=== PATIENT | male | born 1950 | race African-American/Black ===

== ENCOUNTER 2018-05-20 17:52 | Inpatient (IN) | payer OTHER ==
[~2018-05-20] VITALS: Ht 172.7 cm; Wt 79.8 kg
[2018-05-20 18:06] VITALS: BP 141/79
--- NOTE | 2018-05-20 18:20 | NUR ---
PT WHEELCHAIR ASSISTED TO LOBBY WITH EMS.
--- NOTE | 2018-05-20 18:49 | NUR ---
PT FROM [facility] FOR ABNORMAL BUN. PT DENIES N/V/D; MULTIPLE WOUNDS ON BILAT FEET, PINK/WARM/DRY; AAOX4, PERRL, UNABLE TO AMBULATE WITHOUT ASSISTIVE DEVICE, LUNGS CLEAR BL, BREATHING UNLABORED; HR EVEN AND REGULAR, BL PERIPHERAL PULSES PRESENT; BS ACTIVE X4, NO TENDERNESS TO PALPATION, NO HEPATOSPLENOMEGALLY PALPATED, RESONANT TO PERCUSSION; PT DENIES ANY FEVER, CP, SOB, OR COUGH AT THIS TIME; PT STATES 0/10 PAIN AT THIS TIME; VSS; PATIENT POSITIONED FOR COMFORT; HOB ELEVATED; BEDRAILS UP X2; BED DOWN.
--- NOTE | 2018-05-20 19:08 | NUR ---
REPORT TO MELECIO ABEBE
--- NOTE | 2018-05-20 19:11 | NUR ---
REPORT RECIEVED FROM SANTI ABEBE
--- NOTE | 2018-05-20 19:26 | NUR ---
Dr. Ortiz evaluating patient at bedside.
[2018-05-20 19:58] LABS: BASOPHILS # (AUTO) 0.1 K/uL (0.00-0.22); BASOPHILS % (AUTO) 0.9 % (0.0-2.0); EOSINOPHILS % (AUTO) 0.7 % (0.0-4.0); HEMATOCRIT 23.7 % (36-52); HEMOGLOBIN 7.9 g/dL (12.0-18.0); LYMPHOCYTES # (AUTO) 0.6 K/uL (2.0-11.5); LYMPHOCYTES % (AUTO) 10.6 % (20.5-51.1); MEAN CORPUSCULAR HEMOGLOBIN 30 pg (27-31); MEAN CORPUSCULAR HGB CONC 33 g/dL (33-37); MEAN CORPUSCULAR VOLUME 90.3 fL (80-94); MONOCYTES # (AUTO) 0.5 K/uL (0.8-1.0); MONOCYTES % (AUTO) 8.9 % (1.7-9.3); NEUTROPHILS # (AUTO) 4.7 K/uL (1.8-7.7); NEUTROPHILS % (AUTO) 78.9 % (42.2-75.2); PLATELET COUNT (AUTO) 104 K/uL (140-450); RED BLOOD CELL COUNT(AUTO) 2.63 MIL/uL (4.20-6.10); RED CELL DISTRIBUTION WIDTH 21.2 % (11.6-13.7)
[2018-05-20 20:20] LABS: ANION GAP 11.9 (8-16); CARBON DIOXIDE 26.9 mmol/L (21-32); CREATININE 2.8 mg/dL (0.7-1.3); POTASSIUM 3.8 mmol/L (3.5-5.1); TOTAL BILIRUBIN 0.6 mg/dL (0.0-1.0)
[2018-05-20] MEDS ORDERED: NACL 0.9% 1,000 ML IV ONE (20:40)
[2018-05-20] MEDS ORDERED: HYDROcodone/APAP 7.5/325 MG 1 TAB PO PRN (20:55)
[2018-05-20] MEDS ORDERED: MORPHINE SULFATE 2 MG/ML SYR IVP PRN (20:55)
[2018-05-20] MEDS ORDERED: ONDANSETRON 4 MG/2 ML VIAL IM/IVP PRN (20:55)
[2018-05-20] MEDS ORDERED: DOCUSATE SODIUM 100 MG GELCAP PO PRN (20:55)
[2018-05-20] MEDS ORDERED: ACETAMINOPHEN 325 MG TAB PO PRN (20:55)
[2018-05-20 20:58] LABS: PROTHROMBIN TIME 11.8 secs (10.8-13.4)
[2018-05-20] MEDS: NACL 0.9% 1,000 ML IV SCH (21:00)
[2018-05-20 21:34] LABS: CHOL/HDL RATIO 2.6 (1-4.5); MAGNESIUM 2.7 mg/dL (1.8-2.4); PHOSPHORUS 4.5 mg/dL (2.5-4.9); THYROID STIMULATING HORMONE 3.17 uIU/mL (0.34-3.74)
--- NOTE | 2018-05-20 22:26 | NUR ---
Admitted from ER TO TELEMETRY UNIT , with chief complaint of HIGH BUN IN THE URINE TEST , 67 y/o ,Male, Cooperative, AWAKE, A/OX3. RESIDENT OF SN[facility]. RESPIRATION EVEN AND UNLABORED. IV SALINE LOCK AT THE RIGHT WRIST G20, PATENT AND INTACT. LUNGS CLEAR ON BILATERAL AUSCULTATION, 02 SAT - 100% AT 2 LITERS VIA N/C. ABDOMEN SOFT, NON TENDER WITH POSITIVE BOWEL SOUNDS ON ALL QUADRANTS. WITH EDEMA +1 BILATERAL LOWER EXTREMITIES. HEAD TO TOE ASSESSMENT DONE WITH MIS VILLALPANDO NOTED PRESSURE ULCERS ON SACRAL AREA, RIGHT HEEL, LEFT FOOT ON THE ANTERIOR AND LATERAL SIDE AND LEFT HEEL, ALL COVERED WITH DRESSING DRY AND INTACT. WITH AMPUTATED 2ND TOE AT THE RIGHT FOOT AND 3 SMALL TOES AT LEFT FOOT. PAIN AT THE LEFT FOOT 2/10, WILL MEDICATE ORDERED. PLACED BILATERAL FEET ON TWO PILLOWS FOR COMFORT. PLAN OF CARE FOR THE SHIFT DISCUSSED. VERBALIZED UNDERSTANDING. oriented to call light, bed, phone,television, bathroom, smoking policy,visiting hours, procedures, ID bracelet on. Belongings list checked.
[2018-05-20] MEDS ORDERED: OXYC5TAB4 PO (22:27)
[2018-05-20] MEDS ORDERED: CARV3.12 PO (22:27)
[2018-05-20] MEDS ORDERED: FAMO-90 PO (22:27)
[2018-05-20] MEDS ORDERED: SIMV10TA1 PO (22:27)
[2018-05-20] MEDS ORDERED: PROSTAT AWC PO (22:27)
[2018-05-20] MEDS ORDERED: FERR325E14 PO (22:27)
[2018-05-20] MEDS ORDERED: ZYL300 PO (22:27)
[2018-05-20] MEDS ORDERED: AMIO200T5 PO (22:27)
[2018-05-20] MEDS ORDERED: NA P133E RC (22:27)
[2018-05-20] MEDS ORDERED: FURO-570 PO (22:27)
[2018-05-20] MEDS ORDERED: GLIP5TER PO (22:27)
[2018-05-20] MEDS ORDERED: CYCL10TA13 PO (22:27)
[2018-05-20 22:30] VITALS: BP 116/81
--- NOTE | 2018-05-20 22:42 | NUR ---
REPORT GIVEN AND CARE TRANSFERED TO [facility] ROOM 114B. TRANSPORTED VIA [facility] WITH VSS.
[2018-05-20] MEDS ORDERED: MOM PO (22:46)
[2018-05-20] MEDS ORDERED: MVI WITH MINERALS PO (22:46)
[2018-05-20] MEDS ORDERED: HYDR-5092 PO (22:46)
[2018-05-20] MEDS ORDERED: ASCO500T45 PO (22:46)
[2018-05-20] MEDS ORDERED: TEMA15CA24 PO (22:46)
[2018-05-20] MEDS ORDERED: ZAR2.5 PO (22:46)
[2018-05-20] MEDS ORDERED: VITA1TAB44 PO (22:46)
[2018-05-20] MEDS ORDERED: [UNRECOGNIZED DRUG - CODE] (22:46)
[2018-05-20] MEDS ORDERED: DULO20EC PO (22:46)
[2018-05-20] MEDS ORDERED: MIRABULK PO (22:46)
[2018-05-20] MEDS ORDERED: VITD1000 PO (22:46)
[2018-05-20] MEDS ORDERED: LACT10SO1 PO (22:46)
[2018-05-20] MEDS ORDERED: POLYETHYLENE GLYCOL 17 GM/PKT PO PRN (23:00)
[2018-05-20] MEDS ORDERED: DULOXETINE HCL 10 MG PO PRN (23:00)
[2018-05-20] MEDS ORDERED: HYDROcodone/APAP 10/325 MG 1 TAB TAB PO PRN (23:00)
[2018-05-20] MEDS ORDERED: SODIUM PHOSPHATE 118 ML ENEM RC PRN (23:00)
[2018-05-21] VITALS: BP 125/68
[2018-05-21] MEDS ORDERED: DEXTROSE 50% 50 ML SYR IVP PRN (00:15)
[2018-05-21] MEDS: TEMAZEPAM 15 MG CAP PO PRN ×2 (00:21→23:16)
--- NOTE | 2018-05-21 00:21 | NUR ---
UNABLE TO SLEEP, MEDICATED WITH RESTORIL 30 MG. PO. ORDERED.
--- NOTE | 2018-05-21 01:00 | NUR ---
CLEANSE ALL WOUNDS WITH NS, PAT DRY WITH GAUZE, TOOK SPECIMEN FOR WOULD CULTURE, COVERED WITH GAUZE DRESSING.
[2018-05-21] MEDS: NACL 0.9% 1,000 ML IV SCH (01:04)
--- NOTE | 2018-05-21 01:30 | NUR ---
SLEEPING COMFORTABLY IN BED.
[2018-05-21] MEDS ORDERED: FUROSEMIDE 40 MG/4 ML VIAL IVP SCH (03:00)
[2018-05-21] MEDS ORDERED: Z-GUARD PASTE TP PRN (03:50)
[2018-05-21 04:35] VITALS: BP 115/68
--- NOTE | 2018-05-21 06:20 | NUR ---
REFUSED SEQUENTIALS TO BE PUT ON, WANTS IT LATER.
[2018-05-21] MEDS: BLOOD GLUCOSE MONITORING 1 DEV DEV FS SCH ×4 (06:26→20:31)
--- NOTE | 2018-05-21 06:59 | NUR ---
SLEEPING COMFORTABLY IN BED. CONDITION REMAIN STABLE. ALL NEEDS ATTENDED. WILL ENDORSE TO AM NURSE FOR CONTINUITY OF CARE.
[2018-05-21] MEDS ORDERED: oxyCODONE 5 MG TAB PO SCH (07:00)
--- NOTE | 2018-05-21 07:15 | NUR ---
ENDORSED TO ULISSES GUTIERREZ FOR CONTINUITY OF CARE.
--- NOTE | 2018-05-21 07:16 | NUR ---
RECEIVED REPORT FROM HADOOP ADMINISTRATOR NURSE. PATIENT LYING DOWN IN BED COMFORTABLY. NO DISTRESS NOTED. DENIES ANY PAIN AT THIS TIME. AAOX3, CALM, COOPERATIVE, SKIN COLOR APPROPRIATE TO ETHNICITY, WARM TO TOUCH. HAS B/L FOOT DM WOUNDS, AND B/L HEELS PRESSURE ULCER. DRESSINGS ARE DRY AND INTACT. HAS SACRAL ULCER NOTED, DRESSING IS DRY AND INTACT. IV SITE INTACT, PATENT, AND INFUSING IVF PER MD ORDERS. ABDOMEN SOFT, NON-DISTENDED. LUNGS CTA ON ALL LOBES. REVIEWED PLAN OF CARE WITH PATIENT. PATIENT VERBALIZED UNDERSTANDING. SAFETY MEASURES IN PLACE, CALL LIGHT WITHIN REACH. WILL CONTINUE TO MONITOR.
[2018-05-21 07:24] LABS: BASOPHILS % (AUTO) 0.9 % (0.0-2.0); EOSINOPHILS # (AUTO) 0.1 K/uL (0-0.4); EOSINOPHILS % (AUTO) 1.1 % (0.0-4.0); LYMPHOCYTES # (AUTO) 0.6 K/uL (2.0-11.5); LYMPHOCYTES % (AUTO) 11.4 % (20.5-51.1); MEAN CORPUSCULAR HEMOGLOBIN 30 pg (27-31); MEAN CORPUSCULAR HGB CONC 33 g/dL (33-37); MEAN CORPUSCULAR VOLUME 91.4 fL (80-94); MONOCYTES # (AUTO) 0.4 K/uL (0.8-1.0); MONOCYTES % (AUTO) 7.9 % (1.7-9.3); NEUTROPHILS # (AUTO) 4.2 K/uL (1.8-7.7); NEUTROPHILS % (AUTO) 78.7 % (42.2-75.2); PLATELET COUNT (AUTO) 90 K/uL (140-450); RED CELL DISTRIBUTION WIDTH 20.9 % (11.6-13.7); WHITE BLOOD COUNT (AUTO) 5.4 K/uL (4.8-10.8)
[2018-05-21 07:45] LABS: ANION GAP 12.5 (8-16); CREATININE 2.6 mg/dL (0.7-1.3); POTASSIUM 3.5 mmol/L (3.5-5.1)
[2018-05-21 07:58] LABS: HEMOGLOBIN 6.9 g/dL (12.0-18.0)
[2018-05-21 08:00] VITALS: BP 114/67
[2018-05-21 08:39] LABS: MAGNESIUM 2.5 mg/dL (1.8-2.4); PHOSPHORUS 4.2 mg/dL (2.5-4.9)
--- NOTE | 2018-05-21 08:41 | NUR ---
PATIENT HAS BEEN SCREENED AND CATEGORIZED HIGH NUTRITION RISK. PATIENT WILL BE SEEN WITHIN 1-2 DAYS OF ADMISSION. 05/21/18-05/22/[address]
[2018-05-21] MEDS ORDERED: FUROSEMIDE 40 MG TAB PO SCH (09:00)
[2018-05-21] MEDS ORDERED: DULoxetine 30 MG CAPDR PO SCH (09:00)
[2018-05-21] MEDS: AMIODARONE 200 MG TAB PO SCH (09:36)
[2018-05-21] MEDS: VIT-B COMP/VIT-C/FOLIC ACID 1 TAB PO SCH (09:37)
[2018-05-21] MEDS: ASCORBIC ACID 500 MG TAB PO SCH ×2 (09:37→20:44)
[2018-05-21] MEDS: FAMOTIDINE 20 MG TAB PO SCH (09:37)
[2018-05-21] MEDS: CHOLECALCIFEROL 1,000 IU TAB PO SCH (09:37)
[2018-05-21] MEDS: FERROUS SULFATE 325 MG TABEC PO SCH ×3 (09:37→17:08)
[2018-05-21] MEDS: METOLAZONE 2.5 MG TAB PO SCH (09:38)
[2018-05-21] MEDS: ALLOPURINOL 300 MG TAB PO SCH (09:38)
[2018-05-21] MEDS: CARVEDILOL 3.125 MG TAB PO SCH ×2 (09:39→20:44)
[2018-05-21] MEDS: CYCLOBENZAPRINE 10 MG TAB PO SCH ×2 (09:39→20:42)
--- NOTE | 2018-05-21 09:40 | NUR ---
PATIENT URINATED IN URINAL. ABLE TO URINATE. PER DR. NGO ORDERS, WILL NOT INSERT RAMIREZ CATH SINCE PATIENT ABLE TO URINATE.
--- NOTE | 2018-05-21 09:43 | NUR ---
PATIENT LYING DOWN IN BED WATCHING TV. NO DISTRESS NOTED. DENIES ANY PAIN. SCHEDULED MEDICATIONS DUE GIVEN. SAFETY MEASURES IN PLACE, CALL LIGHT WITHIN REACH. WILL CONTINUE TO MONITOR.
--- NOTE | 2018-05-21 09:45 | NUR ---
STARTED 24 HOUR URINE PROTEIN COLLECTION PER DR. NGO ORDERS. WILL CONTINUE TO MONITOR.
[2018-05-21 12:00] VITALS: BP 98/56
[2018-05-21] MEDS: oxyCODONE 5 MG TAB PO SCH ×2 (13:06→20:41)
--- NOTE | 2018-05-21 13:08 | NUR ---
PATIENT SITTING DOWN IN BED WITH LUNCH TRAY IN FRONT. NO DISTRESS NOTED. DENIES ANY PAIN AT THIS TIME. SCHEDULED MEDICATIONS DUE GIVEN. SAFETY MEASURES IN PLACE, CALL LIGHT WITHIN REACH. WILL CONTINUE TO MONITOR.
--- NOTE | 2018-05-21 13:40 | NUR ---
RECEIVED A CALL FROM LAB REGARDING 1 UNIT PRBC. PER CHUCHO AT LAB, BLOOD TYPE AND SCREEN PERFORMED TODAY DID NOT MATCH TYPE AND SCREEN DURING EARLIER PM SHIFT. PHLEBOTIMIST TO REDRAW BLOOD AGAIN TO REDO TYPE AND SCREEN. WILL CONTINUE TO MONITOR.
--- NOTE | 2018-05-21 15:33 | NUR ---
REASON FOR EVALUATION: BLE MULTIPLE WOUNDS SKIN ASSESSMENT DONE WITH PRIMARY RN WITH THIS 67 Y/O MALE PT ADMITTED FROM [facility] TO [facility] WITH INITIAL DX OF ABNORMAL LABS. PAST MEDICAL HX INCLUDES HTN, CABG, CHF, DEPRESSION AND LEFT FOOT PARTIAL AMPUTATION WITH SKIN GRAFTS 3 MONTHHS AGO. PT. HAS WOUND DOCTOR FOLLOW HIS WOUND CARE AT SNF POST SURGERY AND PRESSURE INJURIES TO SCARALCOCCYX. ALL ABOVE INFORMATION OBTAINED FROM ADMISSION H&P. SNF TX NURSE, IVORY WHO EXPLAINS ALL WOUNDS ARE TREATED WITH HONEY TREATMENT EXCEPT THE LEFT HEEL IS TREATED WITH BETADINE SOLUTION. LABS ARE WBC 5.4, H/H 6.9/21.0, GLUCOSE 105 AND ALBUMIN 3.0. PT IS AWAKE. SKIN IS WARM AND DRY, BLE NO HAIR GROWTH, RIGHT DORSAL PEDAL PULSES PRESENT AND NORMAL. PLAN OF CARE DISCUSSED WITH PRIMARY RN AND PT. PT. VERBALIZES UNDERSTANDING. INTEGUMENTARY: - BILATERAL SHINS SKIN THIN AND MOIST -INCONTINENT ASSOCIATE DERMATITIS (IAD) TO: R/L INNER BUTTOCKS EXTENDED TO PERINEUM -OLD HEALED SCARS TO LEFT BUTTOCK -OLD HEALED SURGICAL SITES S/P SKIN GRAFT (DONOR SITES) TO RIGHT AND LEFT UPPER THIGHS, WOUND BED ARE PINK, DRY NO S/S OF INFECTION - PRESSURE INJURY STAGE 2 TO SACRALCOCCYX 1X1X0.1CM, WOUND BED DRY AND PALE PINK IN COLOR, NO S/S OF INFECTIONS -PRESSURE INJURY STAGE 2 TO RIGHT HEEL 4X3X0.1 CM PALE PINK IN WOUND BED, MOIST AND NO ODOR -PRESSURE INJURY UN-STAGEABLE TO LEFT HEEL 5X7CM BLACK ESCHAR -LEFT DORSAL FOOT SURGICAL WOUND (SKIN GRAFT RECIPIENT SITE) 10X5 X0.1 CM, WOUND BED IS RED AND CLEAN, SMALL AMOUNT OF SANGUINEOUS DRAINAGE, NO ODOR, AIDE-WOUND SKIN INTACT. -LEFT LATERAL FOOT SURGICAL WOUND 4X10X 0.1 CM, WOUND BED IS RED AND CLEAN, NO DRAINAGE, NO ODOR, AIDE-WOUND SKIN INTACT. - PRESSURE INJURY UN-STAGEABLE TO LEFT GREAT TOE 1X1 CM BLACK ESCHAR. RECOMMENDATIONS: -APPLY HYDRAGUARD TO BILATERAL ORELLANA -APPLY Z-GUARD TO: R/L BUTTOCKS EXTENDED TO PERINEUM BID AND PRN IF SOILING -APPLY FORM DRESSING TO SACROCOCCY AND LEFT BUTTOCK QDAY AND PRN IF SOILING -CLEANSE LEFT DORSAL FOOT, LEFT LATERAL FOOT AND RIGHT HEEL WITH NS, PART DRY, APPLY THERAHONEY DRESSING SHEET AND COVER WITH DRY DRESSING CHANGE Q72 HOURS AND PRN IF SOILING. -APPLY VERSATEL DRESSING TO RIGHT AND LEFT UPPER THIGHS SKIN GRAFTS Q5 DAYS AND PRN IF SOILING, MONITOR PLACEMENT OF DRESSING Q SHIFT -APPLY SOAKED BETADINE SOLUTION TO LEFT HEEL, COVER WITH DRY DRESSING, WRAP WITH KERLIX ROLLS QD -APPLY HEEL RAISER TO BILATERAL HEELS AT ALL TIMES -OFFLOAD BILATERAL HEELS BY PLACING PILLOWS UNDER CALVES UNLESS OTHERWISE CONTRAINDICATED -PRESSURE REDISTRIBUTIONS SURFACE THERAPY -TURN AND REPOSITION Q2H, OFFLOAD SACRALCOCCYX BY TURNING RIGHT AND LEFT -CONTINUE TO FOLLOW RD RECOMMENDATIONS -CONTINUE TO FOLLOW WOUND DOCTOR UPON DISCHARGE TO [facility] ALL ABOVE RECOMMENDATIONS DISCUSSED WITH PRIMARY RN WILL FOLLOW UP PT Q7-10 DAYS. PLEASE CONTACT WOUND CARE NURSE FOR ANY QUESTION AND CHANGE OF WOUND CONDITION.
[2018-05-21 16:00] VITALS: BP 109/70
[2018-05-21] MEDS ORDERED: THERAHONEY WOUND DRESSING TP PRN (16:05)
--- NOTE | 2018-05-21 16:20 | NUR ---
1 UNIT PRBC STARTED AT THIS TIME. WILL CONTINUE TO MONITOR PER PROTOCOL.
[2018-05-21] MEDS: LACTULOSE 20 GM/30 ML UDC PO SCH ×2 (17:07→20:41)
[2018-05-21] MEDS: INSULIN LISPRO SLIDING SCALE 100 UNITS/ML VIAL SUBQ PRN ×2 (17:07→20:43)
[2018-05-21] MEDS: glipiZIDE 5 MG TAB PO SCH (17:08)
--- NOTE | 2018-05-21 17:12 | NUR ---
PATIENT SITTING IN BED WATCHING TV. NO DISTRESS NOTED. DENIES ANY PAIN. SCHEDULED MEDICATIONS DUE GIVEN. WILL CONTINUE TO MONITOR.
--- NOTE | 2018-05-21 18:40 | NUR ---
1 UNIT PRBC TRANSFUSION COMPLETED. NO REACTIONS NOTED. WILL CONTINUE TO MONITOR.
--- NOTE | 2018-05-21 19:30 | NUR ---
RECEIVED REPORT FROM DAY SHIFT NURSE, MATT, AT PT BEDSIDE. PT IN STABLE CONDITION. PT IS AAOX4. PT IS ON NC 2L. RESPIRATIONS ARE EVEN AND UNLABORED. IV ACCESS IN R HAND 20G, SALINE LOCKED. IV IS PATIENT AND INTACT. PT HAS A SACRAL WOUND COVERED WITH DRESS. DM ULCER TO L FOOT AND R HEEL COVERED WITH DRESSING. WOUND TO L HEEL COVERED WITH DRESSING. ALL DRESSING ARE DRY AND INTACT. PT HAS L LAST THREE TOES AND MIDDLE RIGHT TOE AMPUTATION. HEEL PROTECTORS PLACED BI LATERALLY. PT HAS NO C/O PAIN AT THIS TIME. BED IS LOCKED, LOW POSITION WITH SIDE RAILS UP X2. BOARD UPDATED. CALL LIGHT IS WITHIN REACH. WILL CONTINUE TO MONITOR.
--- NOTE | 2018-05-21 19:30 | NUR ---
GAVE REPORT TO DECISION SCIENCE ANALYST NURSE FOR CONTINUITY OF CARE. PATIENT IN STABLE CONDITION.
[2018-05-21] MEDS: SIMVASTATIN 10 MG TAB PO SCH (20:41)
--- NOTE | 2018-05-21 20:45 | NUR ---
ADMINISTERED SCHEDULED MEDICATIONS. PT TOOLERATED WELL. ALL OTHER NEEDS ARE MET AT THIS TIME. WILL CONTINUE TO MONITOR.
[2018-05-21 21:21] LABS: BASOPHILS % (AUTO) 0.4 % (0.0-2.0); EOSINOPHILS % (AUTO) 0.4 % (0.0-4.0); HEMATOCRIT 23.2 % (36-52); HEMOGLOBIN 7.7 g/dL (12.0-18.0); LYMPHOCYTES # (AUTO) 0.5 K/uL (2.0-11.5); LYMPHOCYTES % (AUTO) 7.9 % (20.5-51.1); MEAN CORPUSCULAR HEMOGLOBIN 30 pg (27-31); MEAN CORPUSCULAR HGB CONC 33 g/dL (33-37); MEAN CORPUSCULAR VOLUME 89.2 fL (80-94); MONOCYTES # (AUTO) 0.5 K/uL (0.8-1.0); MONOCYTES % (AUTO) 7.4 % (1.7-9.3); NEUTROPHILS # (AUTO) 5.2 K/uL (1.8-7.7); NEUTROPHILS % (AUTO) 83.9 % (42.2-75.2); PLATELET COUNT (AUTO) 89 K/uL (140-450); RED BLOOD CELL COUNT(AUTO) 2.61 MIL/uL (4.20-6.10); WHITE BLOOD COUNT (AUTO) 6.2 K/uL (4.8-10.8)
--- NOTE | 2018-05-21 23:16 | NUR ---
PT C/O PAIN. NORCO GIVEN PT C/O DIFFICULTY FALLING ASLEEP RESTORIL GIVEN. PT TOLERATED WELL. WILL CONTINUE TO MONITOR PT.
[2018-05-22] VITALS: BP 108/68
--- NOTE | 2018-05-22 00:16 | NUR ---
PT NO LONGER C/O PAIN. PT IS RESTING COMFORTABLY IN BED. NO SIGNS OR SYMPTOMS OF DISTRESS. WILL CONTINUE TO MONITOR.
[2018-05-22] MEDS: THERAHONEY WOUND DRESSING TP SCH ×2 (01:15→13:00)
[2018-05-22] MEDS: HYDRAGUARD CREAM TP SCH ×2 (01:15→13:00)
[2018-05-22] MEDS: Z-GUARD PASTE TP SCH ×2 (01:15→13:00)
--- NOTE | 2018-05-22 01:16 | NUR ---
WOUND CARE PERFORMED. THERAHONEY DRESSINGS APPLIED TO LEFT FOOT AND RIGHT HEEL. LEFT HEEL CLEANED WITH BETADINE AND NEW DRESISNG APPLIED. HYDRAGAURD APPLIED TO SHINS BILATERALLY. Z-UBALDO AND OPTIFORM APPLIED TO SACRAL AREA. PT TOLERATED WELL. NO SIGNS OR SYMPTOMS OF DISTRESS. WILL CONTINUE TO MONITOR.
--- NOTE | 2018-05-22 03:14 | NUR ---
PT RESTING COMFORTABLY IN BED. BLANKET AND ICE CHIPS GIVEN. ALL OTHER NEEDS ARE MET AT THIS TIME. WILL CONTINUE TO MONITOR PT.
[2018-05-22] MEDS: BLOOD GLUCOSE MONITORING 1 DEV DEV FS SCH ×4 (05:46→21:41)
[2018-05-22] MEDS: oxyCODONE 5 MG TAB PO SCH ×3 (05:47→21:59)
--- NOTE | 2018-05-22 05:47 | NUR ---
SCHEDULED MEDICATION ADMINISTERED. PT TOLERATED WELL. PT BS 51, D 50 GIVEN. WILL REASSESS BS.
--- NOTE | 2018-05-22 06:14 | NUR ---
BS RECHECKED, 161. WILL CONTINUE TO MONITOR PT.
[2018-05-22] MEDS: glipiZIDE 5 MG TAB PO SCH ×2 (06:42→16:30)
--- NOTE | 2018-05-22 06:43 | NUR ---
ADMINISTERED SCHEDULED MEDICATION. PT TOLERATED WELL. PT IS RESTING COMFORTABLY IN BED. ALL NEEDS ARE MET AT THIS TIME. WILL CONTINUE TO MONITOR.
[2018-05-22 07:10] LABS: BASOPHILS % (AUTO) 0.6 % (0.0-2.0); EOSINOPHILS % (AUTO) 0.9 % (0.0-4.0); LYMPHOCYTES # (AUTO) 0.7 K/uL (2.0-11.5); LYMPHOCYTES % (AUTO) 12.9 % (20.5-51.1); MEAN CORPUSCULAR HEMOGLOBIN 29 pg (27-31); MEAN CORPUSCULAR HGB CONC 33 g/dL (33-37); MEAN CORPUSCULAR VOLUME 89.9 fL (80-94); MONOCYTES # (AUTO) 0.5 K/uL (0.8-1.0); MONOCYTES % (AUTO) 9.9 % (1.7-9.3); NEUTROPHILS # (AUTO) 3.8 K/uL (1.8-7.7); NEUTROPHILS % (AUTO) 75.7 % (42.2-75.2); PLATELET COUNT (AUTO) 80 K/uL (140-450); RED BLOOD CELL COUNT(AUTO) 2.34 MIL/uL (4.20-6.10); RED CELL DISTRIBUTION WIDTH 19.8 % (11.6-13.7); WHITE BLOOD COUNT (AUTO) 5.1 K/uL (4.8-10.8)
--- NOTE | 2018-05-22 07:25 | NUR ---
PT REPORT RECEIVED FROM SUPERVISOR PROCESS TESTING NURSE AT BEDSIDE. PT IS AWAKE AND ALERT, NO S/S OF DISTRESS. PT HAS A R HAND 20 GAUGE IV SITE, SALINE LOCK. SKIN INTACT EXCEPT FOR THE 2 SMALL WOUND ON SACRUM, REINFORCED WITH OCTIFORM. PT CURRENTLY 2 L O2 NC. IN PROCESS OF COLLECTING 24 HOUR URINE. BED IS IN LOW POSITION, CALL LIGHT WITHIN REACH. WILL CONTINUE TO MONITOR.
--- NOTE | 2018-05-22 07:31 | NUR ---
ENDORSED PT TO DAY SHIFT NURSE FOR CONTINUITY OF CARE. PT IN STABLE CONDITION.
[2018-05-22 07:47] LABS: ANION GAP 10.5 (8-16); CARBON DIOXIDE 26.8 mmol/L (21-32); CREATININE 2.6 mg/dL (0.7-1.3); POTASSIUM 3.3 mmol/L (3.5-5.1)
[2018-05-22 07:49] LABS: HEMOGLOBIN 6.9 g/dL (12.0-18.0)
[2018-05-22 07:54] LABS: MAGNESIUM 2.4 mg/dL (1.8-2.4); PHOSPHORUS 4.6 mg/dL (2.5-4.9)
[2018-05-22 08:00] VITALS: BP 109/71
[2018-05-22 08:21] LABS: T4 (THYROXINE) 9.5 ug/dL (4.5-12.0)
[2018-05-22] MEDS ORDERED: POTASSIUM CHLORIDE 10 MEQ TABER PO SCH (08:28)
[2018-05-22 09:12] LABS: IMMUNOGLOBULIN A 688 mg/dL (61-437); IMMUNOGLOBULIN G 3208 mg/dL (700-1600); IMMUNOGLOBULIN M 136 mg/dL (20-172)
[2018-05-22] MEDS: CARVEDILOL 3.125 MG TAB PO SCH ×2 (09:54→21:59)
[2018-05-22] MEDS: CYCLOBENZAPRINE 10 MG TAB PO SCH ×2 (09:54→21:59)
[2018-05-22] MEDS: FAMOTIDINE 20 MG TAB PO SCH (09:54)
[2018-05-22] MEDS: FUROSEMIDE 40 MG TAB PO SCH ×2 (09:54→18:21)
[2018-05-22] MEDS: VIT-B COMP/VIT-C/FOLIC ACID 1 TAB PO SCH (09:55)
[2018-05-22] MEDS: FERROUS SULFATE 325 MG TABEC PO SCH ×3 (09:55→18:21)
[2018-05-22] MEDS: METOLAZONE 2.5 MG TAB PO SCH (09:55)
[2018-05-22] MEDS: AMIODARONE 200 MG TAB PO SCH (09:55)
[2018-05-22] MEDS: CHOLECALCIFEROL 1,000 IU TAB PO SCH (09:55)
[2018-05-22] MEDS: ASCORBIC ACID 500 MG TAB PO SCH ×2 (09:55→21:59)
[2018-05-22] MEDS: ALLOPURINOL 300 MG TAB PO SCH (09:56)
[2018-05-22] MEDS: LACTULOSE 20 GM/30 ML UDC PO SCH ×4 (10:03→21:00)
--- NOTE | 2018-05-22 10:10 | NUR ---
24 HOUR URINE COLLECTION AND URINE PROFILE SAMPLE TAKEN TO LAB.
[2018-05-22 11:26] LABS: APPEARANCE,URINE SLIGHTLY CLOUDY (CLEAR); BILIRUBIN,URINE NEGATIVE (NEGATIVE); BLOOD, URINE NEGATIVE (NEGATIVE); COLOR,URINE YELLOW (YELLOW); LEUKOCYTE ESTERASE ,URINE 1+ (NEGATIVE); NITRITE, URINE NEGATIVE (NEGATIVE); UGLUCOSE NEGATIVE (NEGATIVE)
[2018-05-22 11:27] LABS: RBC,URINE 0-5 (RARE) /HPF (0-5); WBC,URINE 60-80 /HPF (0-5)
--- NOTE | 2018-05-22 11:55 | NUR ---
BLOOD TRANSFUSION STARTED. NO S/S OF ACUTE DISTRESS OR REACTIONS NOTED AT THIS TIME. CONTINUING TO MONITOR.
[2018-05-22] MEDS: ACETAMINOPHEN 325 MG TAB PO SCH ×2 (12:16→16:00)
--- NOTE | 2018-05-22 15:02 | NUR ---
1 UNIT PACKED RED BLOOD CELL TRANSFUSION COMPLETED. NO REACTIONS NOTED DURING THE TRANSFUSION. NO C/O CHILLS OR PAIN. PT'S VS STABLE. CONTINUING TO MONITOR.
[2018-05-22 16:00] VITALS: BP 110/69
[2018-05-22 16:57] LABS: BASOPHILS # (AUTO) 0.1 K/uL (0.00-0.22); BASOPHILS % (AUTO) 0.9 % (0.0-2.0); EOSINOPHILS % (AUTO) 0.5 % (0.0-4.0); HEMATOCRIT 26.7 % (36-52); HEMOGLOBIN 8.7 g/dL (12.0-18.0); LYMPHOCYTES # (AUTO) 0.6 K/uL (2.0-11.5); LYMPHOCYTES % (AUTO) 9.6 % (20.5-51.1); MEAN CORPUSCULAR HEMOGLOBIN 29 pg (27-31); MEAN CORPUSCULAR HGB CONC 33 g/dL (33-37); MEAN CORPUSCULAR VOLUME 89.6 fL (80-94); MONOCYTES # (AUTO) 0.4 K/uL (0.8-1.0); MONOCYTES % (AUTO) 7.6 % (1.7-9.3); NEUTROPHILS # (AUTO) 4.8 K/uL (1.8-7.7); NEUTROPHILS % (AUTO) 81.4 % (42.2-75.2); PLATELET COUNT (AUTO) 95 K/uL (140-450); RED BLOOD CELL COUNT(AUTO) 2.98 MIL/uL (4.20-6.10); RED CELL DISTRIBUTION WIDTH 19.9 % (11.6-13.7); WHITE BLOOD COUNT (AUTO) 5.9 K/uL (4.8-10.8)
--- NOTE | 2018-05-22 19:35 | NUR ---
PT REPORT GIVEN AT BEDSIDE. PT ENDORSED IN STABLE CONDITION.
--- NOTE | 2018-05-22 19:35 | NUR ---
RECEIVED REPORT FROM DAY SHIFT NURSE, FABIANA, AT PT BEDSIDE. PT IN STABLE CONDITION. PT IS AAOX4. PT IS ON NC 2L. RESPIRATIONS ARE EVEN AND UNLABORED. IV ACCESS IN R HAND 20G, SALINE LOCKED. IV IS PATENT AND INTACT. PT HAS A SACRAL WOUND COVERED WITH DRESSING. DM ULCER TO L FOOT AND R HEEL COVERED WITH DRESSING. WOUND TO L HEEL COVERED WITH DRESSING. ALL DRESSINGS ARE DRY AND INTACT. PT HAS L FOOT LAST THREE TOES AND MIDDLE RIGHT TOE AMPUTATION. HEEL PROTECTORS PLACED BI LATERALLY. PT HAS NO C/O PAIN AT THIS TIME. BED IS LOCKED, LOW POSITION WITH SIDE RAILS UP X2. BOARD UPDATED. CALL LIGHT IS WITHIN REACH. WILL CONTINUE TO MONITOR
--- NOTE | 2018-05-22 20:09 | NUR ---
PT BS CHECKED, 97. NO COVERAGE NEEDED PER MD ORDERS. WILL CONTINUE TO MONITOR PT.
--- NOTE | 2018-05-22 21:15 | NUR ---
LAB CALLED WITH RESULTS OF PT WOUND CULTURES. 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 DR ACUÑA MADE AWARE.
[2018-05-22] MEDS: SIMVASTATIN 10 MG TAB PO SCH (21:59)
--- NOTE | 2018-05-22 22:00 | NUR ---
ADMINISTERED SCHEDULED MEDICATIONS. PT REFUSED LACTULOSE. PT TOLERATED MEDICATIONS WELL. WILL CONTINUE TO MONITOR.
[2018-05-23] VITALS: BP 106/68
--- NOTE | 2018-05-23 00:10 | NUR ---
PT ASLEEP IN BED. NO SIGNS OR SYMPTOMS OF DISTRESS. WILL CONTINUE TO MONITOR.
[2018-05-23] MEDS: THERAHONEY WOUND DRESSING TP SCH ×2 (01:30→13:00)
[2018-05-23] MEDS: Z-GUARD PASTE TP SCH ×2 (01:35→13:17)
[2018-05-23] MEDS: HYDRAGUARD CREAM TP SCH ×2 (01:35→13:17)
--- NOTE | 2018-05-23 01:35 | NUR ---
CLEANED AND CHANGED DRESSING ON L HEEL WOUND. APPLIED HYDRAGUARD TO BLE. CHANGED DRESSING ON SACRAL AREA. APPLIED Z GUARD TO SACRAL AREA AND BILATERAL BUTTOCKS. THERAHONEY DRESSINGS NOT CHANGED D/T NO THERAHONEY AVAILABLE. DRESSINGS ARE DRY AND INTACT. PT TOLERATED WELL. NO SIGNS OR SYMPTOMS OF DISTRESS. WILL CONTINUE TO MONITOR.
--- NOTE | 2018-05-23 03:30 | NUR ---
PT ASLEEP IN BED. NO SIGNS OR SYMPTOMS OF DISTRESS. WILL CONTINUE TO MONITOR.
[2018-05-23] MEDS: oxyCODONE 5 MG TAB PO SCH ×3 (05:11→20:35)
--- NOTE | 2018-05-23 05:20 | NUR ---
ENDORSED PT TO RN CHUCHO FOR CONTINUITY OF CARE. PT IN STABLE CONDITION.
--- NOTE | 2018-05-23 05:21 | NUR ---
RECEIVED PT IN STABLE CONDITION FROM MIS MORALES FOR CONTINUITY OF CARE. PT IS AWAKE,ALERT AND ORIENTED X4. WITH HL ON RT WRIST G#20. BEDREST. WITH OPEN WOUND ON RODRICK FEET. ON CONTACT ISOLATION FOR MRSA FEET. BED ON LOW POSITION. FREQUEMT ROUNDS NEEDED. SIDE RAILS ARE UP X2. CALL LIGHT PLACED WITHIN EASY REACH. WILL CONTINUE TO MONITOR.
[2018-05-23] MEDS: BLOOD GLUCOSE MONITORING 1 DEV DEV FS SCH ×4 (05:40→20:33)
--- NOTE | 2018-05-23 05:40 | NUR ---
BLOOD SUGAR WAS CHECKED RESULT ONLY 61. PT IS AWAKE AND ORIENTED X4. ORANGE JUICE 350 ML GIVEN. TOLERATED WELL. WILL RECHECKED BS AGAIN LATER.
--- NOTE | 2018-05-23 06:30 | NUR ---
BLOOD SUGAR RECHECKED RESULT 112. PT IS IN STABLE CONDITION.
[2018-05-23] MEDS: glipiZIDE 5 MG TAB PO SCH ×2 (06:47→18:18)
[2018-05-23 06:50] LABS: BASOPHILS % (AUTO) 0.7 % (0.0-2.0); EOSINOPHILS % (AUTO) 0.5 % (0.0-4.0); HEMATOCRIT 23.8 % (36-52); HEMOGLOBIN 7.9 g/dL (12.0-18.0); LYMPHOCYTES # (AUTO) 0.5 K/uL (2.0-11.5); LYMPHOCYTES % (AUTO) 8.1 % (20.5-51.1); MEAN CORPUSCULAR HEMOGLOBIN 30 pg (27-31); MEAN CORPUSCULAR HGB CONC 33 g/dL (33-37); MEAN CORPUSCULAR VOLUME 89.2 fL (80-94); MONOCYTES # (AUTO) 0.5 K/uL (0.8-1.0); MONOCYTES % (AUTO) 7.6 % (1.7-9.3); NEUTROPHILS # (AUTO) 5.6 K/uL (1.8-7.7); NEUTROPHILS % (AUTO) 83.1 % (42.2-75.2); PLATELET COUNT (AUTO) 88 K/uL (140-450); RED BLOOD CELL COUNT(AUTO) 2.67 MIL/uL (4.20-6.10); RED CELL DISTRIBUTION WIDTH 19.5 % (11.6-13.7); WHITE BLOOD COUNT (AUTO) 6.7 K/uL (4.8-10.8)
[2018-05-23 07:05] LABS: ANION GAP 12.5 (8-16); CARBON DIOXIDE 26.2 mmol/L (21-32); CREATININE 2.4 mg/dL (0.7-1.3); POTASSIUM 3.7 mmol/L (3.5-5.1)
[2018-05-23 07:14] LABS: MAGNESIUM 2.5 mg/dL (1.8-2.4); PHOSPHORUS 4.3 mg/dL (2.5-4.9)
--- NOTE | 2018-05-23 07:14 | NUR ---
ENDORSED PT IN STABLE CONDITION TO AM NURSE FOR CONTINUITY OF CARE.
[2018-05-23 07:18] LABS: FOLIC ACID 7.9 ng/mL (>3.0)
--- NOTE | 2018-05-23 07:20 | NUR ---
PT REPORT RECEIVED FROM STORM SASH MAKER NURSE AT BEDSIDE. PT IS AWAKE AND ALERT, NO S/S OF DISTRESS. PT HAS A R HAND 20 GAUGE IV SITE, SALINE LOCK. SKIN INTACT EXCEPT FOR THE 2 SMALL WOUND ON SACRUM, REINFORCED WITH OCTIFORM. PT CURRENTLY 1 L O2 NC. BED IS IN LOW POSITION, CALL LIGHT WITHIN REACH. WILL CONTINUE TO MONITOR
--- NOTE | 2018-05-23 07:20 | NUR ---
GAVE PT REPORT AT BEDSIDE TO INCOME TAX ADJUSTER NURSE. PT ENDORSED IN STABLE CONDITION.
[2018-05-23 08:00] VITALS: BP 104/63
[2018-05-23] MEDS ORDERED: ALLOPURINOL 300 MG TAB PO SCH (09:00)
--- NOTE | 2018-05-23 09:20 | NUR ---
05/22/18 RD INITIAL ASSESSMENT COMPLETED PLEASE REFER TO NUTRITION ASSESSMENT UNDER CARE ACTIVITY FOR ESTIMATED NUTRITIONAL NEEDS. 1. CONTINUE CCHO DIET TOLERATED 2. RD PROVIDED NUTRITION EDUCATION ON DIABETIC DIET. 3. RD PROVIDED NUTRITION EDUCATION ON A VEGETARIAN DIET UPON PT UPON REQUEST. 3. RD TO FOLLOW-UP 3-5 DAYS, MODERATE RISK TENZIN COHN RD
[2018-05-23] MEDS: CYCLOBENZAPRINE 10 MG TAB PO SCH ×2 (09:32→20:34)
[2018-05-23] MEDS: LACTULOSE 20 GM/30 ML UDC PO SCH ×4 (09:32→20:33)
[2018-05-23] MEDS: CHOLECALCIFEROL 1,000 IU TAB PO SCH (09:32)
[2018-05-23] MEDS: VIT-B COMP/VIT-C/FOLIC ACID 1 TAB PO SCH (09:33)
[2018-05-23] MEDS: FUROSEMIDE 40 MG TAB PO SCH ×2 (09:33→18:18)
[2018-05-23] MEDS: CARVEDILOL 3.125 MG TAB PO SCH ×2 (09:33→20:37)
[2018-05-23] MEDS: FERROUS SULFATE 325 MG TABEC PO SCH ×3 (09:34→18:19)
[2018-05-23] MEDS: AMIODARONE 200 MG TAB PO SCH (09:34)
[2018-05-23] MEDS: FAMOTIDINE 20 MG TAB PO SCH (09:34)
[2018-05-23] MEDS: ASCORBIC ACID 500 MG TAB PO SCH ×2 (09:34→20:34)
[2018-05-23] MEDS: METOLAZONE 2.5 MG TAB PO SCH (09:34)
--- NOTE | 2018-05-23 09:35 | NUR ---
RECEIVED ORDER FOR TRANSFER TO [facility] UNDER DR. KHAN. I CALLED [facility] AND SPOKE WITH ROSIO. PER HIS REQUEST, I FAXED FACE SHEET, H&P AND ORDER TO HIM AT [phone].
--- NOTE | 2018-05-23 13:36 | NUR ---
SPOKE WITH ROSIO FROM ADMITTING AT [facility]. HE SAID HE HAD EVERYTHING HE NEEDED. JUST WAITING FOR A BED. I GAVE HIM THE PHONE NUMBER TO THE FLOOR WHEN A BED BECOMES AVAILABLE.
[2018-05-23] MEDS ORDERED: FURO-570 PO (14:07)
--- NOTE | 2018-05-23 15:14 | NUR ---
05/23/18 RD INITIAL ASSESSMENT COMPLETED PLEASE REFER TO NUTRITION ASSESSMENT UNDER CARE ACTIVITY FOR ESTIMATED NUTRITIONAL NEEDS. 1. CONTINUE CCHO DIET TOLERATED 2. RD PROVIDED NUTRITION EDUCATION ON DIABETIC DIET. 3. RD PROVIDED NUTRITION EDUCATION ON A VEGETARIAN DIET UPON PT UPON REQUEST. 4. RD TO FOLLOW-UP 3-5 DAYS, MODERATE RISK TENZIN COHN RD
[2018-05-23 16:00] VITALS: BP 109/67
--- NOTE | 2018-05-23 16:02 | NUR ---
LINDA FROM [facility] ADMITTING CALLED BACK AND PATIENT CAN GO TO ROOM 428 ,TELE FLOOR ACCEPTING DR IS DR GÓMEZ THE PHONE NUMBER TO GIVE REPORT [phone] FABIANA RN AWARE WILL ARRANGE TRANSPORT
--- NOTE | 2018-05-23 16:41 | NUR ---
KAYLA FROM [facility] CALLED. THEY CAN TAKE THE PATIENT AFTER 8P.M. I CALLED [facility]UL A[facility] AND INFORMED HER.
--- NOTE | 2018-05-23 19:20 | NUR ---
GAVE PT REPORT TO ASSESSMENT TECHNICIAN NURSE AT BEDSIDE. PT ENDORSED IN STABLE CONDITION.
--- NOTE | 2018-05-23 19:25 | NUR ---
RECEIVED REPORT FROM DAY SHIFT RN, FOR CONTINUITY OF CARE.PT IS A/OX4, ON 1L O2 VIA NASAL CANNULA. PT IS ABLE TO MAKE NEEDS KNOWN, ABLE TO FOLLOW COMMANDS. PT BREATHS EQUAL AND UNLABORED. PT IS UNABLE TO AMBULATE AND HAS MULTIPLE WOUNDS, SEE WOUND ASSESSMENT. PT HAS A 20G IV TO RIGHT WRIST, ASYMPTOMATIC AND INTACT. PT AWAITING TRANSFER DISCUSSED PLAN OF CARE WITH PT, PT VERBALIZED UNDERSTANDING. VITAL SIGNS WITHIN NORMAL LIMITS. PT STABLE, NO SIGNS OF DISTRESS NOTED AT THIS TIME. BED IN LOWEST POSITION, BED ALARM ON. CALL LIGHT WITHIN REACH, WILL CONTINUE TO MONITOR.
[2018-05-23] MEDS ORDERED: ACETAMINOPHEN 650 MG SUPP RC PRN (19:35)
--- NOTE | 2018-05-23 19:56 | NUR ---
GAVE PT REPORT OVER THE PHONE TO PANCHO AT [facility].
[2018-05-23 20:00] VITALS: BP 136/70
--- NOTE | 2018-05-23 20:25 | NUR ---
RECEIVED PATIENT ON 1L NC, O2 SAT96%. NO SOB OR DISTRESS NOTED AT THIS TIME. WILL CONTINUE TO MONITOR.
[2018-05-23] MEDS: SIMVASTATIN 10 MG TAB PO SCH (20:34)
--- NOTE | 2018-05-23 21:10 | NUR ---
PT LEFT UNIT IN [facility] ACCOMPANIED BY TRANSPORTERS, IN STABLE CONDITION. PT TOOK ALL PERSONAL BELONGINGS WITH HIM.
--- NOTE | 2018-05-27 10:34 | NUR ---
CALLED [facility] AND SPOKE WITH THE PATIENT'S NURSE, KAROLYN. PATIENT IN RM 312. I INFORMED HER THAT THIS PATIENT CAME FROM [facility]. SHE SAID SHE WAS AWARE.
--- NOTE | 2018-05-27 11:11 | NUR ---
1110 CALLED [facility] AND SPOKE WITH HARPER AND INFORMED HER THAT PT WAS TRANSFERRED TO [facility] ON 05/23 FOR BONE MARROW BX AND THAT [facility] WAS INFORMED THAT PT RESIDES AT [facility]. HARPER STATED THAT SHE WILL FOLLOW UP WITH [facility].
== END 2018-05-23 21:10 | disposition short-term general hospital (02) | DRG 682 ==
LOC: MED 17:52 → MMU 20:52 → MTU 22:34
PROVIDERS: ADMIT Family Medicine; ATTEND Family Medicine
PROC: 30233N1 Transfusion of Nonautologous Red Blood Cells into Peripheral Vein, Percutaneous Approach (ICD-10-PCS; principal; 2018-05-21)
PROC: 30233N1 Transfusion of Nonautologous Red Blood Cells into Peripheral Vein, Percutaneous Approach (ICD-10-PCS; 2018-05-22)
DX: N17.0 Acute kidney failure with tubular necrosis (principal); I50.43 Acute on chronic combined systolic (congestive) and diastolic (congestive) heart failure; E44.0 Moderate protein-calorie malnutrition; E87.1 Hypo-osmolality and hyponatremia; I42.0 Dilated cardiomyopathy; J90 Pleural effusion, not elsewhere classified; I13.0 Hypertensive heart and chronic kidney disease with heart failure and stage 1 through stage 4 chronic kidney disease, or unspecified chronic kidney disease; N39.0 Urinary tract infection, site not specified; R79.89 Other specified abnormal findings of blood chemistry; L89.151 Pressure ulcer of sacral region, stage 1; L89.892 Pressure ulcer of other site, stage 2; K72.90 Hepatic failure, unspecified without coma; D64.9 Anemia, unspecified; E11.22 Type 2 diabetes mellitus with diabetic chronic kidney disease; N18.9 Chronic kidney disease, unspecified; E11.621 Type 2 diabetes mellitus with foot ulcer; E11.40 Type 2 diabetes mellitus with diabetic neuropathy, unspecified; G89.29 Other chronic pain; M54.9 Dorsalgia, unspecified; F32.9 Major depressive disorder, single episode, unspecified; I48.91 Unspecified atrial fibrillation; T50.2X5A Adverse effect of carbonic-anhydrase inhibitors, benzothiadiazides and other diuretics, initial encounter; E11.51 Type 2 diabetes mellitus with diabetic peripheral angiopathy without gangrene; D89.0 Polyclonal hypergammaglobulinemia; L97.519 Non-pressure chronic ulcer of other part of right foot with unspecified severity; E78.5 Hyperlipidemia, unspecified; G47.00 Insomnia, unspecified; E83.41 Hypermagnesemia; J44.9 Chronic obstructive pulmonary disease, unspecified; Z79.899 Other long term (current) drug therapy; I25.2 Old myocardial infarction; Z89.421 Acquired absence of other right toe(s); Z95.1 Presence of aortocoronary bypass graft; Z83.3 Family history of diabetes mellitus; Z56.0 Unemployment, unspecified; Z89.422 Acquired absence of other left toe(s); Y92.89 Other specified places as the place of occurrence of the external cause; Z68.26 Body mass index [BMI] 26.0-26.9, adult
CPT/HCPCS: 36415; 71045; 76604; 76770; 80048; 80053; 81001; 82043; 82140; 82150; 82272; 82550; 82607; 82746; 82948; 83036; 83540; 83605; 83615; 83690; 83735; 83880; 84100; 84156; 84165; 84436; 84443; 84479; 84484; 85025; 85045; 85610; 85730; 86334; 86886; 86900; 86901; 86920; 87070; 87081; 87086; 87186; 93005; 93925; 93970; 96360; 99285; J1815; J1940; J7030; P9016; Q0092; Q0163